=== PATIENT | male | born 1960 ===

== ENCOUNTER 2020-11-19 09:36 | Outpatient (REF) | payer BC, SELFPAY ==
[2020-11-21 14:54] LABS: COVID-19 RT-PCR UVMMC Result Negative (Negative)
== END 2020-11-19 09:37 | disposition home or self-care (01) ==
LOC: NCHCN 09:36
PROVIDERS: Visit Provider Internal Medicine
DX: Z20.822 Contact with and (suspected) exposure to COVID-19 (principal)
CPT/HCPCS: U0003

== ENCOUNTER 2020-12-01 09:54 | Outpatient (REF) | payer BC, SELFPAY ==
[2020-12-03 15:38] LABS: COVID-19 RT-PCR UVMMC Result Negative (Negative)
== END 2020-12-01 09:55 | disposition home or self-care (01) ==
LOC: NCHCN 09:54
PROVIDERS: Visit Provider Internal Medicine
DX: Z20.822 Contact with and (suspected) exposure to COVID-19 (principal)
CPT/HCPCS: U0003